=== PATIENT | male | born 1960 | race Caucasian/White ===

== ENCOUNTER → 2024-09-02 | Day surgery (SDC) | payer BC ==
[~2024-09-02] MED LIST: ACETAMINOPHEN 1000 MG/100 ML 100 ML IV ONE; DEXAMETHASONE SOD PHOS INJ 4 MG/ML SDV ONE; FENTANYL CITRATE/PF 100MCG/2 ML INJ ONE; LIDOCAINE HCL 2% LOCAL INJ 5 ML SDV VIAL INJ ONE; ONDANSETRON HCL INJ 2MG/ML 2ML 2 MG/ML VIAL ONE; PROPOFOL IV EMULSION 10 MG/ML 20 ML VIAL ONE; SEVOFLURANE INHAL SOLN 250 ML PEN BTL ONE
[2024-09-02] MEDS: LACTATED RINGER'S 1,000 ML ONE (05:51)
[2024-09-02 07:38] VITALS: TEMP 97.3
[2024-09-02 08:30] VITALS: BP 129/83; PULSE 69; RESP 16; O2SAT 95
[2024-09-02] MEDS: ACETAMINOPHEN/CODEINE 300MG - 30MG TAB ONE (08:41)
== END | disposition home or self-care (01) ==
LOC: OR 05:36
PROVIDERS: ATTEND Specialist
DX: G56.03 Carpal tunnel syndrome, bilateral upper limbs (principal); Z01.810 Encounter for preprocedural cardiovascular examination; Z68.34 Body mass index [BMI] 34.0-34.9, adult
CPT/HCPCS: 29848; 93005; J0131; J0690; J1100; J2003; J2405; J2704; J3010; J7121